=== PATIENT | male | born 1970 | race Asian ===

== ENCOUNTER 2020-04-01 19:20 | Emergency (ER) | payer OTHER ==
[~2020-04-01] VITALS: Ht 175.3 cm; Wt 82.6 kg
[2020-04-01 19:26] VITALS: Ht 175.3 cm; Wt 82.6 kg
[2020-04-01 21:51] VITALS: BP 137/77
== END 2020-04-01 21:51 | disposition home or self-care (01) ==
LOC: ED 19:20
DX: M79.671 Pain in right foot (principal); I10 Essential (primary) hypertension
CPT/HCPCS: J1885